=== PATIENT | male | born 1955 | race Caucasian/White ===

== ENCOUNTER 2017-11-19 10:47 | Inpatient (IN) | payer MEDICARE, SELFPAY ==
[~2017-11-19] VITALS: Ht 193 cm; Wt 122.7 kg
[~2017-11-19 10:47] MED LIST: ALBU90OI INH; ALBU90OI6; AMIO200 PO; AMLO10 PO; ASPI325; ATEN100; ATEN100 PO; ATOR10; Antivert25 MG PO; BUPR75; BUPR75 PO; CARB100CH PO; CARB200; CARB200 PO; CARV25 PO; CARV3.125 PO; CIPR500 PO; COUMADIN; CYCL10 PO; Cipro500 MG PO; Coreg25 MG PO; Desyrel50 MG PO; ESCI10 PO; ESCI20 PO; FINA5 PO; FLEC100 PO; FLEC50; FLEC50 PO; GABA100; GABA100 PO; HCTZ 25 MG; HYDACE5 PO; HYDCHL25 PO; HYDMOR2 PO; Keflex500 MG PO; LEVE500 PO; LISI5 PO; LOPE2C PO; LORA1 PO; LOSHYD; Lopressor 25 mg25 MG PO; MECL25 PO; METR500 PO; MULVITMIND PO; Mirapex0.25 MG PO; Norco 5-325 Ta1 EACH PO; ONDA4 PO; OXYACE5T PO; PHENA100 PO; PRED20 PO; PROCODE120 PO; PROM25 PO; Prednisone20 MG PO; RXHYDMOR2 PO; TAMS.4ER PO; TIOT18; TRAZ100 PO; TRAZ50 PO; TRIM100 PO; Tegretol200 MG; Tenormin PO; WARF1 PO; WARF5; WARF5 PO; WARF6 PO; WARF7.5; Zithromax250 MG PO; Zofran Odt4 MG SL; [UNRECOGNIZED DRUG - OTHER] PO
[2017-11-19 12:11] LABS: BASOPHILS ABSOLUTE AUTO 0.05 K/mm3 (0.00-0.23); BASOPHILS PERCENT AUTO 0 % (0-2); EOSINOPHILS ABSOLUTE AUTO 0.22 K/mm3 (0.00-0.68); EOSINOPHILS PERCENT AUTO 2 % (0-6); Hematocrit 35.9 % (37.0-53.0); Hemoglobin 12.1 g/dL (13.5-17.5); IMMATURE GRAN ABSOLUTE AUTO 0.24 K/mm3 (0.00-0.10); IMMATURE GRAN PERCENT AUTO 2 % (0-1); LYMPHOCYTES ABSOLUTE AUTO 1.07 K/mm3 (0.84-5.20); LYMPHOCYTES PERCENT AUTO 10 % (21-46); MONOCYTES ABSOLUTE AUTO 1.08 K/mm3 (0.16-1.47); MONOCYTES PERCENT AUTO 10 % (4-13); Mean Corpuscular HGB 30.4 pg (26.0-34.0); Mean Corpuscular HGB Conc 33.7 g/dL (31.5-36.5); Mean Corpuscular Volume 90 fL (80-100); Mean Platelet Volume 11.2 fL (9.1-12.4); NEUTROPHILS ABSOLUTE AUTO 8.48 K/mm3 (1.96-9.15); NEUTROPHILS PERCENT AUTO 76 % (41-73); Platelet Count 102 K/mm3 (150-400); RDW Coefficient Variation 12.3 % (11.7-14.2); RDW Standard Deviation 40.3 fL (35.1-46.3); Red Blood Cell Count 3.98 M/mm3 (4.30-5.90); White Blood Cell Count 11.14 K/mm3 (4.00-11.30)
[2017-11-19 12:32] LABS: Alanine Aminotransfer (ALT/SGP 18 U/L (12-78); Albumin, Blood 3.2 g/dL (3.4-5.0); Albumin/Globulin Ratio 0.8 (0.8-1.8); Alk Phos 84 U/L (50-136); Anion Gap 6 mmol/L (6-16); Aspartate Aminotrans (AST/SGOT 17 U/L (12-37); Bilirubin, Total 0.5 mg/dL (0.1-1.0); Blood Urea Nitrogen 16 mg/dL (8-24); Bun/Creatinine Ratio 10.1 (12.0-20.0); CO2, Blood 23 mmol/L (21-32); Calcium, Blood 8.3 mg/dL (8.5-10.1); Chloride, Blood 101 mmol/L (98-108); Creatinine, Blood 1.59 mg/dL (0.60-1.20); Glomerular Filtration Rate 47 (60-); Glucose, Blood 95 mg/dL (70-99); Potassium, Blood 5.7 mmol/L (3.5-5.5); Sodium, Blood 130 mmol/L (136-145); Total Protein, Blood 7.2 g/dL (6.4-8.2)
[2017-11-19 12:38] LABS: Troponin I <0.015 ng/mL (0.000-0.040)
[2017-11-19] MEDS ORDERED: ESCI20 PO (16:43)
[2017-11-19] MEDS ORDERED: LAMO100 PO (16:44)
[2017-11-19] MEDS ORDERED: VENLAFAXINE ER PO (17:18)
[2017-11-19 19:30] LABS: International Normalized Ratio 2.92; Prothrombin Time Results 31.4 Sec (9.7-11.5)
[2017-11-20 04:17] LABS: BASOPHILS ABSOLUTE AUTO 0.04 K/mm3 (0.00-0.23); BASOPHILS PERCENT AUTO 1 % (0-2); EOSINOPHILS ABSOLUTE AUTO 0.28 K/mm3 (0.00-0.68); EOSINOPHILS PERCENT AUTO 3 % (0-6); Hematocrit 35.4 % (37.0-53.0); Hemoglobin 11.8 g/dL (13.5-17.5); IMMATURE GRAN ABSOLUTE AUTO 0.17 K/mm3 (0.00-0.10); IMMATURE GRAN PERCENT AUTO 2 % (0-1); LYMPHOCYTES ABSOLUTE AUTO 1.31 K/mm3 (0.84-5.20); LYMPHOCYTES PERCENT AUTO 16 % (21-46); MONOCYTES PERCENT AUTO 10 % (4-13); Mean Corpuscular HGB 29.6 pg (26.0-34.0); Mean Corpuscular HGB Conc 33.3 g/dL (31.5-36.5); Mean Corpuscular Volume 89 fL (80-100); Mean Platelet Volume 10.5 fL (9.1-12.4); NEUTROPHILS ABSOLUTE AUTO 5.81 K/mm3 (1.96-9.15); NEUTROPHILS PERCENT AUTO 69 % (41-73); Platelet Count 109 K/mm3 (150-400); RDW Coefficient Variation 12.4 % (11.7-14.2); RDW Standard Deviation 40.4 fL (35.1-46.3); Red Blood Cell Count 3.99 M/mm3 (4.30-5.90); White Blood Cell Count 8.41 K/mm3 (4.00-11.30)
[2017-11-20 04:30] LABS: International Normalized Ratio 3.2
[2017-11-20 04:45] LABS: Prothrombin Time Results 34.5 Sec (9.7-11.5)
[2017-11-20 04:59] LABS: Albumin, Blood 3.1 g/dL (3.4-5.0); Albumin/Globulin Ratio 0.8 (0.8-1.8); Bilirubin, Total 0.5 mg/dL (0.1-1.0); Bun/Creatinine Ratio 12.8 (12.0-20.0); Calcium, Blood 8.3 mg/dL (8.5-10.1); Creatinine, Blood 1.49 mg/dL (0.60-1.20); Globulin, Blood 3.8 g/dL (2.2-4.0); Potassium, Blood 4.5 mmol/L (3.5-5.5); Total Protein, Blood 6.9 g/dL (6.4-8.2)
== END 2017-11-20 14:31 | disposition home or self-care (01) | DRG 91 ==
LOC: ER 10:47 → MEDS 10:48 → SURS 15:48
PROVIDERS: Emergency Medicine; Internal Medicine
DX: G83.84 Todd's paralysis (postepileptic) (principal); G93.41 Metabolic encephalopathy; E87.1 Hypo-osmolality and hyponatremia; C85.10 Unspecified B-cell lymphoma, unspecified site; G40.909 Epilepsy, unspecified, not intractable, without status epilepticus; I12.9 Hypertensive chronic kidney disease with stage 1 through stage 4 chronic kidney disease, or unspecified chronic kidney disease; Z86.718 Personal history of other venous thrombosis and embolism; I25.2 Old myocardial infarction; E87.5 Hyperkalemia; N18.3 Chronic kidney disease, stage 3 (moderate); Z95.810 Presence of automatic (implantable) cardiac defibrillator; T42.1X5A Adverse effect of iminostilbenes, initial encounter
CPT/HCPCS: 36415; 70450; 80053; 84484; 85025; 85610; 92523; 93005; 93010; 96360; 97161; 97166; 97530; 99285; G8978; G8979; G8980; G8987; G8988; G8989; G9162; G9163; G9164; J7030

== ENCOUNTER → 2018-06-20 | Outpatient (CLI) | payer MEDICARE ==
[~2018-06-20] MED LIST changes: +CARB100ER PO; +CEFD300 PO; +CEFP200 PO; +Coumadin5 MG PO; +LAMO100 PO; +Prinivil10 MG PO; +VENL75ER PO; +VENLAFAXINE ER PO
[2018-06-20 13:47] LABS: BASOPHILS ABSOLUTE AUTO 0.06 K/mm3 (0.00-0.23); BASOPHILS PERCENT AUTO 1 % (0-2); EOSINOPHILS ABSOLUTE AUTO 0.29 K/mm3 (0.00-0.68); EOSINOPHILS PERCENT AUTO 3 % (0-6); Hematocrit 36.8 % (37.0-53.0); Hemoglobin 12.5 g/dL (13.5-17.5); IMMATURE GRAN ABSOLUTE AUTO 0.26 K/mm3 (0.00-0.10); IMMATURE GRAN PERCENT AUTO 3 % (0-1); LYMPHOCYTES ABSOLUTE AUTO 1.15 K/mm3 (0.84-5.20); LYMPHOCYTES PERCENT AUTO 11 % (21-46); MONOCYTES PERCENT AUTO 8 % (4-13); Mean Corpuscular HGB 30.1 pg (26.0-34.0); Mean Corpuscular Volume 89 fL (80-100); Mean Platelet Volume 10.5 fL (9.1-12.4); NEUTROPHILS ABSOLUTE AUTO 7.79 K/mm3 (1.96-9.15); NEUTROPHILS PERCENT AUTO 75 % (41-73); Platelet Count 123 K/mm3 (150-400); RDW Coefficient Variation 12.4 % (11.7-14.2); RDW Standard Deviation 39.9 fL (35.1-46.3); Red Blood Cell Count 4.15 M/mm3 (4.30-5.90); White Blood Cell Count 10.35 K/mm3 (4.00-11.30)
[2018-06-20 13:57] LABS: Bun/Creatinine Ratio 6.6 (12.0-20.0); Calcium, Blood 8.6 mg/dL (8.5-10.1); Creatinine, Blood 1.97 mg/dL (0.60-1.20)
[2018-06-20 14:01] LABS: Potassium, Blood 6.4 mmol/L (3.5-5.5)
== END | disposition home or self-care (01) ==
LOC: LAB SHORT 13:38 → LAB EV 13:38
PROVIDERS: General Practice
DX: E87.5 Hyperkalemia (principal)
CPT/HCPCS: 80048; 85025; 85610

== ENCOUNTER 2018-07-30 11:58 | Emergency (ER) | payer MEDICARE ==
[~2018-07-30] VITALS: Ht 193 cm; Wt 81.7 kg
[2018-07-30 12:56] LABS: BASOPHILS ABSOLUTE AUTO 0.08 K/mm3 (0.00-0.23); BASOPHILS PERCENT AUTO 1 % (0-2); EOSINOPHILS ABSOLUTE AUTO 0.27 K/mm3 (0.00-0.68); EOSINOPHILS PERCENT AUTO 3 % (0-6); Hematocrit 39.8 % (37.0-53.0); Hemoglobin 13.2 g/dL (13.5-17.5); IMMATURE GRAN ABSOLUTE AUTO 0.28 K/mm3 (0.00-0.10); IMMATURE GRAN PERCENT AUTO 3 % (0-1); LYMPHOCYTES ABSOLUTE AUTO 1.37 K/mm3 (0.84-5.20); LYMPHOCYTES PERCENT AUTO 13 % (21-46); MONOCYTES ABSOLUTE AUTO 0.91 K/mm3 (0.16-1.47); MONOCYTES PERCENT AUTO 8 % (4-13); Mean Corpuscular HGB 29.7 pg (26.0-34.0); Mean Corpuscular HGB Conc 33.2 g/dL (31.5-36.5); Mean Corpuscular Volume 89 fL (80-100); Mean Platelet Volume 10.3 fL (9.1-12.4); NEUTROPHILS ABSOLUTE AUTO 7.98 K/mm3 (1.96-9.15); NEUTROPHILS PERCENT AUTO 73 % (41-73); Platelet Count 126 K/mm3 (150-400); RDW Coefficient Variation 12.4 % (11.7-14.2); RDW Standard Deviation 40.8 fL (35.1-46.3); Red Blood Cell Count 4.45 M/mm3 (4.30-5.90); White Blood Cell Count 10.89 K/mm3 (4.00-11.30)
[2018-07-30 13:09] LABS: International Normalized Ratio 2.31; Prothrombin Time Results 22.7 Sec (9.7-11.5)
[2018-07-30 13:16] LABS: Alanine Aminotransfer (ALT/SGP 20 U/L (12-78); Albumin, Blood 3.7 g/dL (3.4-5.0); Albumin/Globulin Ratio 0.8 (0.8-1.8); Alk Phos 104 U/L (50-136); Anion Gap 9 mmol/L (6-16); Aspartate Aminotrans (AST/SGOT 18 U/L (12-37); Bilirubin, Total 0.4 mg/dL (0.1-1.0); Blood Urea Nitrogen 16 mg/dL (8-24); Bun/Creatinine Ratio 10.5 (12.0-20.0); CO2, Blood 21 mmol/L (21-32); Calcium, Blood 8.7 mg/dL (8.5-10.1); Chloride, Blood 102 mmol/L (98-108); Creatinine, Blood 1.52 mg/dL (0.60-1.20); Globulin, Blood 4.4 g/dL (2.2-4.0); Glomerular Filtration Rate 49 (60-); Glucose, Blood 118 mg/dL (70-99); Potassium, Blood 4.7 mmol/L (3.5-5.5); Sodium, Blood 132 mmol/L (136-145); Total Protein, Blood 8.1 g/dL (6.4-8.2); Troponin I <0.015 ng/mL (0.000-0.040)
== END 2018-07-30 13:30 | disposition home or self-care (01) ==
LOC: ER 11:58
PROVIDERS: Physician Assistant
DX: I10 Essential (primary) hypertension (principal); Z88.0 Allergy status to penicillin; Z88.2 Allergy status to sulfonamides; Z88.1 Allergy status to other antibiotic agents; Z79.899 Other long term (current) drug therapy; Z79.01 Long term (current) use of anticoagulants; I48.91 Unspecified atrial fibrillation; G43.909 Migraine, unspecified, not intractable, without status migrainosus; I25.2 Old myocardial infarction; Z95.0 Presence of cardiac pacemaker
CPT/HCPCS: 36415; 70450; 80053; 84484; 85025; 85610; 93005; 93010; 99284-25

== ENCOUNTER 2018-10-02 00:39 | Emergency (ER) | payer MEDICARE ==
[~2018-10-02] VITALS: Ht 193 cm; Wt 136.1 kg
[2018-10-02] MEDS ORDERED: LISI5 PO (01:04)
== END 2018-10-02 01:30 | disposition home or self-care (01) ==
LOC: ER 00:39
DX: R29.818 Other symptoms and signs involving the nervous system (principal); I10 Essential (primary) hypertension; I25.2 Old myocardial infarction; I48.91 Unspecified atrial fibrillation; Z88.0 Allergy status to penicillin; Z88.2 Allergy status to sulfonamides; Z88.1 Allergy status to other antibiotic agents; Z79.899 Other long term (current) drug therapy; Z79.01 Long term (current) use of anticoagulants
CPT/HCPCS: 99284

== ENCOUNTER 2018-11-05 10:37 | Emergency (ER) | payer MEDICARE ==
[~2018-11-05] VITALS: Ht 193 cm; Wt 108.9 kg
[2018-11-05 11:19] LABS: BASOPHILS PERCENT AUTO 1 % (0-2); EOSINOPHILS ABSOLUTE AUTO 0.52 K/mm3 (0.00-0.68); EOSINOPHILS PERCENT AUTO 5 % (0-6); Hemoglobin 12.5 g/dL (13.5-17.5); IMMATURE GRAN ABSOLUTE AUTO 0.56 K/mm3 (0.00-0.10); IMMATURE GRAN PERCENT AUTO 5 % (0-1); LYMPHOCYTES ABSOLUTE AUTO 1.62 K/mm3 (0.84-5.20); LYMPHOCYTES PERCENT AUTO 14 % (21-46); MONOCYTES ABSOLUTE AUTO 0.93 K/mm3 (0.16-1.47); MONOCYTES PERCENT AUTO 8 % (4-13); Mean Corpuscular HGB 30.3 pg (26.0-34.0); Mean Corpuscular HGB Conc 32.9 g/dL (31.5-36.5); Mean Corpuscular Volume 92 fL (80-100); Mean Platelet Volume 9.8 fL (9.1-12.4); NEUTROPHILS ABSOLUTE AUTO 7.58 K/mm3 (1.96-9.15); NEUTROPHILS PERCENT AUTO 67 % (41-73); Platelet Count 104 K/mm3 (150-400); RDW Coefficient Variation 13.1 % (11.7-14.2); RDW Standard Deviation 43.6 fL (35.1-46.3); Red Blood Cell Count 4.12 M/mm3 (4.30-5.90); White Blood Cell Count 11.31 K/mm3 (4.00-11.30)
[2018-11-05] MEDS ORDERED: Venlafaxine HCl75 MG PO (11:56)
[2018-11-05] MEDS ORDERED: MIRT15 PO (11:56)
[2018-11-05] MEDS ORDERED: CARB200 PO (11:57)
[2018-11-05] MEDS ORDERED: AMLO5 PO (11:57)
[2018-11-05 12:05] LABS: Albumin, Blood 3.1 g/dL (3.4-5.0); Albumin/Globulin Ratio 0.8 (0.8-1.8); Bilirubin, Total 0.4 mg/dL (0.1-1.0); Bun/Creatinine Ratio 11.4 (12.0-20.0); Calcium, Blood 8.3 mg/dL (8.5-10.1); Creatinine, Blood 1.66 mg/dL (0.60-1.20); Globulin, Blood 3.8 g/dL (2.2-4.0); Potassium, Blood 5.3 mmol/L (3.5-5.5); Total Protein, Blood 6.9 g/dL (6.4-8.2)
[2018-11-05] MEDS ORDERED: Lamictal100 MG PO (13:35)
== END 2018-11-05 13:53 | disposition home or self-care (01) ==
LOC: ER 10:37
PROVIDERS: Emergency Medicine
DX: I12.9 Hypertensive chronic kidney disease with stage 1 through stage 4 chronic kidney disease, or unspecified chronic kidney disease (principal); N18.9 Chronic kidney disease, unspecified; I48.91 Unspecified atrial fibrillation; G40.909 Epilepsy, unspecified, not intractable, without status epilepticus; I25.2 Old myocardial infarction; Z85.72 Personal history of non-Hodgkin lymphomas; Z88.2 Allergy status to sulfonamides; Z88.0 Allergy status to penicillin; Z88.8 Allergy status to other drugs, medicaments and biological substances; Z79.01 Long term (current) use of anticoagulants; Z79.899 Other long term (current) drug therapy
CPT/HCPCS: 36415; 80053; 85025; 93005; 93010; 96360; 99285-25; J7030

== ENCOUNTER → 2018-11-12 | Outpatient (CLI) | payer MEDICARE ==
[~2018-11-12] MED LIST changes: +AMLO5 PO; +Lamictal100 MG PO; +MIRT15 PO; +Venlafaxine HCl75 MG PO
[2018-11-12 15:38] LABS: Hematocrit 36.6 % (37.0-53.0); Hemoglobin 11.7 g/dL (13.5-17.5); Mean Corpuscular HGB 30.2 pg (26.0-34.0); RDW Coefficient Variation 13.4 % (11.7-14.2); RDW Standard Deviation 46.5 fL (35.1-46.3); Red Blood Cell Count 3.87 M/mm3 (4.30-5.90); White Blood Cell Count 8.92 K/mm3 (4.00-11.30)
[2018-11-12 18:12] LABS: Mean Corpuscular Volume 95 fL (80-100); Mean Platelet Volume 10.6 fL (9.1-12.4); Platelet Count 138 K/mm3 (150-400)
[2018-11-12 18:21] LABS: BAND PERCENT MAN 6 % (0-8); BASOPHILS ABSOLUTE MAN 0.17 K/mm3 (0.00-0.23); BASOPHILS PERCENT MAN 2 % (0-2); EOSINOPHILS ABSOLUTE MAN 0.89 K/mm3 (0.00-0.68); EOSINOPHILS PERCENT MAN 10 % (0-6); LYMPHOCYTES ABSOLUTE MAN 1.78 K/mm3 (0.84-5.20); LYMPHOCYTES PERCENT MAN 20 % (21-46); METAMYELOCYTE ABSOLUTE MAN 0.08 K/mm3 (0.00-0.00); METAMYELOCYTE PERCENT MAN 1 % (0-0); MONOCYTES ABSOLUTE MAN 0.53 K/mm3 (0.16-1.47); MONOCYTES PERCENT MAN 6 % (4-13); MYELOCYTE ABSOLUTE MAN 0.08 K/mm3 (0.00-0.00); MYELOCYTE PERCENT MAN 1 % (0-0); NEUTROPHILS ABSOLUTE MAN 5.35 K/mm3 (1.96-9.15); SEG NEUTROPHILS PERCENT MAN 54 % (41-73); TOTAL CELLS COUNTED 100
[2018-11-12 19:06] LABS: International Normalized Ratio 1.9
== END | disposition home or self-care (01) ==
LOC: LAB SHORT 15:30 → LAB EV 15:30
PROVIDERS: Family Medicine; Internal Medicine
DX: I48.91 Unspecified atrial fibrillation (principal); R53.83 Other fatigue
CPT/HCPCS: 85025; 85610

== ENCOUNTER 2019-01-20 17:11 | Emergency (ER) | payer MEDICARE ==
[~2019-01-20] VITALS: Ht 193 cm; Wt 99.8 kg
[2019-01-20] MEDS ORDERED: Cleocin HCl300 MG PO (17:51)
[2019-02-04] MEDS ORDERED: LEVO750 PO (07:52)
== END 2019-01-20 18:00 | disposition home or self-care (01) ==
LOC: ER 17:11
DX: K04.7 Periapical abscess without sinus (principal); I10 Essential (primary) hypertension; I48.91 Unspecified atrial fibrillation; I25.2 Old myocardial infarction; G40.909 Epilepsy, unspecified, not intractable, without status epilepticus; Z88.0 Allergy status to penicillin; Z88.2 Allergy status to sulfonamides; Z79.899 Other long term (current) drug therapy
CPT/HCPCS: 99283

== ENCOUNTER 2019-02-03 00:06 | Emergency (ER) | payer MEDICARE ==
[~2019-02-03] VITALS: Ht 193 cm; Wt 122.5 kg
[~2019-02-03 00:06] MED LIST changes: +Cleocin HCl300 MG PO
[2019-02-03 00:39] LABS: BASOPHILS ABSOLUTE AUTO 0.06 K/mm3 (0.00-0.23); BASOPHILS PERCENT AUTO 1 % (0-2); EOSINOPHILS ABSOLUTE AUTO 0.21 K/mm3 (0.00-0.68); EOSINOPHILS PERCENT AUTO 2 % (0-6); Hematocrit 34.9 % (37.0-53.0); Hemoglobin 11.8 g/dL (13.5-17.5); IMMATURE GRAN ABSOLUTE AUTO 0.24 K/mm3 (0.00-0.10); IMMATURE GRAN PERCENT AUTO 2 % (0-1); LYMPHOCYTES PERCENT AUTO 8 % (21-46); MONOCYTES ABSOLUTE AUTO 0.81 K/mm3 (0.16-1.47); MONOCYTES PERCENT AUTO 7 % (4-13); Mean Corpuscular HGB 30.5 pg (26.0-34.0); Mean Corpuscular HGB Conc 33.8 g/dL (31.5-36.5); Mean Corpuscular Volume 90 fL (80-100); Mean Platelet Volume 10.4 fL (9.1-12.4); NEUTROPHILS ABSOLUTE AUTO 9.14 K/mm3 (1.96-9.15); NEUTROPHILS PERCENT AUTO 81 % (41-73); Platelet Count 120 K/mm3 (150-400); RDW Coefficient Variation 12.5 % (11.7-14.2); RDW Standard Deviation 41.6 fL (35.1-46.3); Red Blood Cell Count 3.87 M/mm3 (4.30-5.90); White Blood Cell Count 11.36 K/mm3 (4.00-11.30)
[2019-02-03 00:58] LABS: Alanine Aminotransfer (ALT/SGP 16 U/L (12-78); Albumin, Blood 3.2 g/dL (3.4-5.0); Albumin/Globulin Ratio 0.8 (0.8-1.8); Alk Phos 104 U/L (50-136); Anion Gap 8 mmol/L (6-16); Aspartate Aminotrans (AST/SGOT 12 U/L (12-37); Bilirubin, Total 0.4 mg/dL (0.1-1.0); Blood Urea Nitrogen 23 mg/dL (8-24); Bun/Creatinine Ratio 16.7 (12.0-20.0); CO2, Blood 24 mmol/L (21-32); Calcium, Blood 8.4 mg/dL (8.5-10.1); Chloride, Blood 100 mmol/L (98-108); Creatinine, Blood 1.38 mg/dL (0.60-1.20); Globulin, Blood 3.8 g/dL (2.2-4.0); Glomerular Filtration Rate 55 (60-); Glucose, Blood 104 mg/dL (70-99); Potassium, Blood 5.1 mmol/L (3.5-5.5); Sodium, Blood 132 mmol/L (136-145); Troponin I <0.015 ng/mL (0.000-0.040)
[2019-02-04] MEDS ORDERED: LEVO750 PO (07:52)
== END 2019-02-03 01:31 | disposition home or self-care (01) ==
LOC: ER 00:06
PROVIDERS: Physician Assistant
DX: E87.1 Hypo-osmolality and hyponatremia (principal); Z88.0 Allergy status to penicillin; Z88.2 Allergy status to sulfonamides; Z88.1 Allergy status to other antibiotic agents; Z79.899 Other long term (current) drug therapy; Z79.01 Long term (current) use of anticoagulants; I10 Essential (primary) hypertension; I48.91 Unspecified atrial fibrillation; I25.2 Old myocardial infarction
CPT/HCPCS: 71045; 80053; 83690; 84484; 85025; 93005; 93010; 96361; 96374; 99284-25; A9270-GY; J2405; J7030

== ENCOUNTER 2019-06-26 15:27 | Inpatient (IN) | payer MEDICARE ==
[~2019-06-26] VITALS: Ht 193 cm; Wt 120.8 kg
[~2019-06-26 15:27] MED LIST changes: +LEVO750 PO
[2019-06-26 16:11] LABS: BASOPHILS ABSOLUTE AUTO 0.04 K/mm3 (0.00-0.23); BASOPHILS PERCENT AUTO 0 % (0-2); EOSINOPHILS ABSOLUTE AUTO 0.32 K/mm3 (0.00-0.68); EOSINOPHILS PERCENT AUTO 2 % (0-6); Hematocrit 33.1 % (37.0-53.0); Hemoglobin 11.1 g/dL (13.5-17.5); IMMATURE GRAN ABSOLUTE AUTO 0.21 K/mm3 (0.00-0.10); IMMATURE GRAN PERCENT AUTO 1 % (0-1); LYMPHOCYTES PERCENT AUTO 4 % (21-46); MONOCYTES ABSOLUTE AUTO 1.15 K/mm3 (0.16-1.47); MONOCYTES PERCENT AUTO 6 % (4-13); Mean Corpuscular HGB Conc 33.5 g/dL (31.5-36.5); Mean Corpuscular Volume 93 fL (80-100); Mean Platelet Volume 10.7 fL (9.1-12.4); NEUTROPHILS ABSOLUTE AUTO 15.72 K/mm3 (1.96-9.15); NEUTROPHILS PERCENT AUTO 87 % (41-73); Platelet Count 116 K/mm3 (150-400); RDW Coefficient Variation 12.3 % (11.7-14.2); RDW Standard Deviation 41.8 fL (35.1-46.3); Red Blood Cell Count 3.58 M/mm3 (4.30-5.90); White Blood Cell Count 18.14 K/mm3 (4.00-11.30)
[2019-06-26] MEDS ORDERED: CARV25 PO ×2 (16:36→16:38)
[2019-06-26] MEDS ORDERED: CARB200 PO (16:37)
[2019-06-26] MEDS ORDERED: VENLAFAXINE HC225 MG PO (16:37)
[2019-06-26] MEDS ORDERED: VENL75ER PO (16:38)
[2019-06-26] MEDS ORDERED: LAMO100 PO (16:38)
[2019-06-26] MEDS ORDERED: WARF5 PO ×2 (16:39→18:34)
[2019-06-26] MEDS ORDERED: HYDCHL25 PO (16:39)
[2019-06-26 16:40] LABS: Alanine Aminotransfer (ALT/SGP 16 U/L (12-78); Albumin, Blood 3.3 g/dL (3.4-5.0); Albumin/Globulin Ratio 0.8 (0.8-1.8); Alk Phos 107 U/L (50-136); Anion Gap 9 mmol/L (6-16); Aspartate Aminotrans (AST/SGOT 13 U/L (12-37); Bilirubin, Total 1.1 mg/dL (0.1-1.0); Blood Urea Nitrogen 33 mg/dL (8-24); CO2, Blood 21 mmol/L (21-32); Calcium, Blood 8.4 mg/dL (8.5-10.1); Chloride, Blood 97 mmol/L (98-108); Globulin, Blood 4.3 g/dL (2.2-4.0); Glomerular Filtration Rate 32 (60-); Glucose, Blood 122 mg/dL (70-99); Potassium, Blood 5.1 mmol/L (3.5-5.5); Sodium, Blood 127 mmol/L (136-145); Total Protein, Blood 7.6 g/dL (6.4-8.2); Troponin I <0.015 ng/mL (0.000-0.040)
[2019-06-26] MEDS ORDERED: AMLO10 PO (16:40)
[2019-06-26 18:25] LABS: Influenza A Negative (NEGATIVE); Influenza B Negative (NEGATIVE)
[2019-06-26 20:38] LABS: International Normalized Ratio 2.39; Prothrombin Time Results 23.4 Sec (9.7-11.5)
--- NOTE | 2019-06-26 21:13 | NUR ---
PT ARRIVE TO MED FLOOR. DENIES PAIN AT THIS TIME. SITTING UP IN BED. ADMISSION IN PROGRESS.
--- NOTE | 2019-06-26 22:02 | NUR ---
CALLED DR JONES DE REQ TO SELF CATH. RECEIVED ORDER PER EMAR
[2019-06-27 00:42] LABS: Source, Urine Clean Catch
[2019-06-27 00:44] LABS: Bilirubin, Urine Neg (Neg); Blood, Urine 5+ (Neg); Glucose Qualitative, Urine Neg (Neg); Ketones, Urine 1+ (Neg); Leukocyte Esterase, Urine 2+ (Neg); Nitrite, Urine Neg (Neg); Protein, Urine 3+ (Neg); Specific Gravity, Urine 1.015 (1.003-1.022); Urobilinogen, Urine 2+ (Normal)
[2019-06-27 00:50] LABS: Appearance, Urine Clear (Clear); Color, Urine Amber (P-Yellow)
[2019-06-27 00:51] LABS: Amorphous Light (0-Heavy); Bacteria Mod /hpf; Squamous Epithelial Cells Few /hpf (Few)
[2019-06-27 04:50] LABS: Hematocrit 31.2 % (37.0-53.0); Hemoglobin 10.2 g/dL (13.5-17.5); Mean Corpuscular HGB 30.5 pg (26.0-34.0); Mean Corpuscular HGB Conc 32.7 g/dL (31.5-36.5); Mean Corpuscular Volume 93 fL (80-100); Mean Platelet Volume 10.8 fL (9.1-12.4); Platelet Count 123 K/mm3 (150-400); RDW Coefficient Variation 12.5 % (11.7-14.2); Red Blood Cell Count 3.34 M/mm3 (4.30-5.90); White Blood Cell Count 18.13 K/mm3 (4.00-11.30)
--- NOTE | 2019-06-27 04:56 | NUR ---
SHIFT SUMARY: PATIENT RESTED IN CAT NAPS BETWEEN INTERVENTION BUT REMAINS OF PLEASANT DEMEANOR AND COOPERATIVE WITH CARE. WHILE THE PATIENT IS AO4 HE ALSO HAS SOME CONFUSION AT TIMES. HIS ADMISSION ASSESSMENTS WERE COMPLETED AND MEDS GIVEN PER EMAR. HIS MED REC NEEDS TO BE REVIEWED BY THE PROVIDER HILDA, HIS PCP MADE RECENT ADJUSTMENTS TO THE DOSING OF SEVERAL OF HIS MEDS. PT DENIES PAIN THIS SHIFT. PT USING SELF CATHS, BUT MAY NEED MORE ASSISTANCE THAN HE WOULD LIKE TO SAY WITH THAT TASK. RESP PANEL COMPLETED AND U/A SENT.
[2019-06-27 05:04] LABS: International Normalized Ratio 2.82; Prothrombin Time Results 27.2 Sec (9.7-11.5)
[2019-06-27 05:47] LABS: Adenovirus Not Detected (NOT DETECT); Bordetella pertussis Not Detected (NOT DETECT); Chlamydophila pneumoniae Not Detected (NOT DETECT); Coronavirus 229E Not Detected (NOT DETECT); Coronavirus HKU1 Not Detected (NOT DETECT); Coronavirus NL63 Not Detected (NOT DETECT); Coronavirus OC43 Not Detected (NOT DETECT); Human Metapneumovirus Not Detected (NOT DETECT); Human Rhinovirus/Enterovirus Not Detected (NOT DETECT); Influenza A Not Detected (NOT DETECT); Influenza A/2009-H1 Not Detected (NOT DETECT); Influenza A/H1 Not Detected (NOT DETECT); Influenza A/H3 Not Detected (NOT DETECT); Influenza B Not Detected (NOT DETECT); Mycoplasma pneumoniae Not Detected (NOT DETECT); Parainfluenza Virus 1 Not Detected (NOT DETECT); Parainfluenza Virus 2 Not Detected (NOT DETECT); Parainfluenza Virus 3 Not Detected (NOT DETECT); Parainfluenza Virus 4 Not Detected (NOT DETECT); Respiratory Syncytial Virus Not Detected (NOT DETECT)
[2019-06-27 05:54] LABS: Bun/Creatinine Ratio 16.7 (12.0-20.0); Calcium, Blood 8.1 mg/dL (8.5-10.1); Creatinine, Blood 2.15 mg/dL (0.60-1.20); Potassium, Blood 4.8 mmol/L (3.5-5.5)
--- NOTE | 2019-06-27 15:24 | NUR ---
ECHOCARDIOGRAM COMPLETE
--- NOTE | 2019-06-27 17:24 | NUR ---
SUMMARY PT WAS AWAKE THIS AM, ORIENT X2 HOWEVER SOMEWHAT FORGETFUL, RAMBLING SPEECH. HE STATE "CHEMO BRAIN" REASON FOR DECREASED MENTATION, STATE HX CANCER TX. HE APPEARS WEAK/FATIGUED, @ X'S CLOSES EYES WHILE TALKING, DROWSY. STATE NO PAIN, CONTINUING COUGH. SPUTUM SAMPLE SENT THIS AM. AFTER AM MEDS THIS AM PT BECAME VERY DROWSY, APPEARED SEDATED. BENITO RE-EXAMINATION OF MEDS HIS STATE TEGRETOL HAS BEEN DECREASED, DR MONTIEL NOTIFIED. ALL HOME MED DISCREPANCIES CORRECTED. THIS AFTERNOON PT'S DAUGHTER STATE SHE WITNESSED POSSIBLE SEIZURE ACTIVITY, CAUSING SKIN TEAR PT'S L HAND, SEIZURE PADS PLACED. PT HAS HX NEUROGENIC BLADDER, SELF CATHS @ HOME, BRING IN HOME CATHETERS. DX BILAT PNEUM, LUNGS MILDLY COARSE THIS AM, BIOX 9% RA. IV ANTIBX ARE ORDERED, NS INFUSING @ 150 ML/HR.
--- NOTE | 2019-06-28 04:47 | NUR ---
SHIFT SUMMARY NO CHANGES OVERNIGHT, PT HAS RESTED T/O THE NOC. VERY DROWSY, BUT AWAKES TO VERBAL STIMULI. PT IS FORGETFUL AND SPEECH IS NON SENSICAL AT TIMES. PT DOES HAVE DIFFICULTIES EXPRESSING HIS THOUGHTS, HE REPORTS "CHEMO' BRAIN. IV ABX INFUSED ORDERED. TELE IN PLACE WITH NSR/1ST DEGREE HB 69. LUNGS DIMINISHED. RA, RESP E/U. VITALS STABLE. ASSESSMENT UNCHANGED. WILL CONTINUE TO MONITOR AND REPORT TO ONCOMING RN.
[2019-06-28 04:55] LABS: BASOPHILS ABSOLUTE AUTO 0.07 K/mm3 (0.00-0.23); BASOPHILS PERCENT AUTO 1 % (0-2); EOSINOPHILS ABSOLUTE AUTO 0.23 K/mm3 (0.00-0.68); EOSINOPHILS PERCENT AUTO 2 % (0-6); Hematocrit 28.7 % (37.0-53.0); Hemoglobin 9.1 g/dL (13.5-17.5); IMMATURE GRAN ABSOLUTE AUTO 0.27 K/mm3 (0.00-0.10); IMMATURE GRAN PERCENT AUTO 3 % (0-1); LYMPHOCYTES ABSOLUTE AUTO 1.13 K/mm3 (0.84-5.20); LYMPHOCYTES PERCENT AUTO 10 % (21-46); MONOCYTES ABSOLUTE AUTO 1.32 K/mm3 (0.16-1.47); MONOCYTES PERCENT AUTO 12 % (4-13); Mean Corpuscular HGB 30.6 pg (26.0-34.0); Mean Corpuscular HGB Conc 31.7 g/dL (31.5-36.5); Mean Platelet Volume 11.4 fL (9.1-12.4); NEUTROPHILS ABSOLUTE AUTO 7.82 K/mm3 (1.96-9.15); NEUTROPHILS PERCENT AUTO 72 % (41-73); Platelet Count 126 K/mm3 (150-400); RDW Coefficient Variation 12.9 % (11.7-14.2); RDW Standard Deviation 45.8 fL (35.1-46.3); Red Blood Cell Count 2.97 M/mm3 (4.30-5.90); White Blood Cell Count 10.84 K/mm3 (4.00-11.30)
[2019-06-28 04:56] LABS: Mean Corpuscular Volume 97 fL (80-100)
[2019-06-28 05:12] LABS: International Normalized Ratio 3.57; Prothrombin Time Results 33.7 Sec (9.7-11.5)
[2019-06-28 05:17] LABS: Albumin, Blood 2.8 g/dL (3.4-5.0); Anion Gap 10 mmol/L (6-16); Blood Urea Nitrogen 49 mg/dL (8-24); Bun/Creatinine Ratio 19.8 (12.0-20.0); CO2, Blood 20 mmol/L (21-32); Calcium, Blood 7.9 mg/dL (8.5-10.1); Chloride, Blood 105 mmol/L (98-108); Creatinine, Blood 2.48 mg/dL (0.60-1.20); Glomerular Filtration Rate 28 (60-); Glucose, Blood 78 mg/dL (70-99); Phosphorus, Blood 4.3 mg/dL (2.5-4.9); Potassium, Blood 4.9 mmol/L (3.5-5.5); Sodium, Blood 135 mmol/L (136-145)
--- NOTE | 2019-06-28 12:21 | NUR ---
SEIZURE- DURABLE MEDICAL EQUIPMENT TECHNICIAN CALLED AND REPORTED SHE WAS AT BEDSIDE AND PT HAVING A SEIZURE. PHYSICAL THERAPY HAD ATTEMTPED TO SEE PT AND REPORTS PT BEGAN COUGHING AND THEN BEGAN TO HAVE A SEIZURE. UPON MY ARRIVAL PT CONTINUE TO HAVE JERKING MOVEMENTS TO BUE AND BLE AND NOT RESPONDING THEN BEGAN CRYING. DR NICOLAS WAS NOTIFIED AND PER HIS REQUEST ATIVAN 2MG IV GIVEN. PT QUICKLY BEGAN TO RELAX AND IS NOW SLEEPING. VSS AT THIS TIME. SEIZURE PADS WERE IN PLACE. WILL CONT TO MONITOR.
--- NOTE | 2019-06-28 16:31 | NUR ---
SHIFT SUMMARY- PT A/OX4, SLOW TO RESPOND AT TIMES. LS DIMINISHED, ON RA. TELE NSR AT 79. PT DENIES ANY COMPLAINTS T/O THE DAY. THERAPY ATTEMPTED TO SEE PT WHEN HE HAD A SEIZURE, ATIVAN 2MG IV GIVEN AND PT HAS BEEN RESTING SINCE. NO FURTHER SEIZURES NOTED. PT STRAIGHT CATH'D X1 WITH 500ML OUTPUT, PT NEEDING ASSISTANCE WITH STRAIGHT CATH. IVF DECREASED TO 75ML/HR.
--- NOTE | 2019-06-29 04:00 | NUR ---
SHIFT SUMMARY NO ACUTE CHANGES TO REPORT THIS SHIFT. PT DROWSY, AND SLEEPS MOST OF THE TIME, BUT AWAKES EASILY TO VERBAL STIMULI. NO SEIZURE ACTIVITY THIS SHIFT. PT HAS NEEDED SOME ASSISTANCE WITH STRAIGHT CATH, BUT WAS MOSTLY ABLE TO DO IT HIMSELF. 700 MLS REMOVED VIA STRAIGHT CATH THIS SHIFT. PT DENIES PAIN. OCCASIONAL, HARSH PRODUCTIVE COUGH. IV ABX INFUSED ORDERED. IVF INFUSING AT THIS TIME. BED IN LOWEST POSITION, CALL LIGHT WITHIN REACH. WILL CONTINUE TO MONITOR AND REPORT TO ONCOMING RN.
[2019-06-29 05:27] LABS: BASOPHILS ABSOLUTE AUTO 0.07 K/mm3 (0.00-0.23); BASOPHILS PERCENT AUTO 1 % (0-2); EOSINOPHILS ABSOLUTE AUTO 0.47 K/mm3 (0.00-0.68); EOSINOPHILS PERCENT AUTO 4 % (0-6); Hematocrit 30.2 % (37.0-53.0); Hemoglobin 9.7 g/dL (13.5-17.5); IMMATURE GRAN ABSOLUTE AUTO 0.41 K/mm3 (0.00-0.10); IMMATURE GRAN PERCENT AUTO 4 % (0-1); LYMPHOCYTES ABSOLUTE AUTO 1.07 K/mm3 (0.84-5.20); LYMPHOCYTES PERCENT AUTO 10 % (21-46); MONOCYTES ABSOLUTE AUTO 1.36 K/mm3 (0.16-1.47); MONOCYTES PERCENT AUTO 12 % (4-13); Mean Corpuscular HGB 30.2 pg (26.0-34.0); Mean Corpuscular HGB Conc 32.1 g/dL (31.5-36.5); Mean Platelet Volume 10.6 fL (9.1-12.4); NEUTROPHILS ABSOLUTE AUTO 7.77 K/mm3 (1.96-9.15); NEUTROPHILS PERCENT AUTO 70 % (41-73); Platelet Count 166 K/mm3 (150-400); RDW Coefficient Variation 12.7 % (11.7-14.2); RDW Standard Deviation 44.5 fL (35.1-46.3); Red Blood Cell Count 3.21 M/mm3 (4.30-5.90); White Blood Cell Count 11.15 K/mm3 (4.00-11.30)
[2019-06-29 05:34] LABS: Mean Corpuscular Volume 94 fL (80-100)
[2019-06-29 05:45] LABS: Anion Gap 12 mmol/L (6-16); Blood Urea Nitrogen 48 mg/dL (8-24); Bun/Creatinine Ratio 21.9 (12.0-20.0); CO2, Blood 17 mmol/L (21-32); Calcium, Blood 8.1 mg/dL (8.5-10.1); Chloride, Blood 107 mmol/L (98-108); Creatinine, Blood 2.19 mg/dL (0.60-1.20); Glomerular Filtration Rate 32 (60-); Glucose, Blood 80 mg/dL (70-99); Phosphorus, Blood 3.9 mg/dL (2.5-4.9); Potassium, Blood 4.4 mmol/L (3.5-5.5); Sodium, Blood 136 mmol/L (136-145)
[2019-06-29 05:48] LABS: Prothrombin Time Results 51.4 Sec (9.7-11.5)
[2019-06-29 06:08] LABS: International Normalized Ratio 5.68
--- NOTE | 2019-06-29 11:51 | NUR ---
OBSERVED PATIENT COMPLETE SELF CATHETERIZATION. PATIENT DIDN'T WASH HANDS PRIOR TO ACTIVITY. STERILE TECHNIQUE NOT USED BY PATIENT. ATTEMPTED EDUCATION. PATIENT MENTATION SEEMS LIMITED AND TEACH BACK NOT PERFORMED D/T MENTATION. PATIENT WASN'T RECEPTIVE TO NURSE PERFORMING STRAIGHT CATH.
[2019-06-30 04:59] LABS: BASOPHILS ABSOLUTE AUTO 0.06 K/mm3 (0.00-0.23); BASOPHILS PERCENT AUTO 1 % (0-2); EOSINOPHILS ABSOLUTE AUTO 0.45 K/mm3 (0.00-0.68); EOSINOPHILS PERCENT AUTO 5 % (0-6); Hematocrit 28.5 % (37.0-53.0); Hemoglobin 9.1 g/dL (13.5-17.5); IMMATURE GRAN ABSOLUTE AUTO 0.36 K/mm3 (0.00-0.10); IMMATURE GRAN PERCENT AUTO 4 % (0-1); LYMPHOCYTES ABSOLUTE AUTO 0.96 K/mm3 (0.84-5.20); LYMPHOCYTES PERCENT AUTO 11 % (21-46); MONOCYTES PERCENT AUTO 13 % (4-13); Mean Corpuscular HGB 29.6 pg (26.0-34.0); Mean Corpuscular HGB Conc 31.9 g/dL (31.5-36.5); Mean Corpuscular Volume 93 fL (80-100); Mean Platelet Volume 10.2 fL (9.1-12.4); NEUTROPHILS ABSOLUTE AUTO 5.73 K/mm3 (1.96-9.15); NEUTROPHILS PERCENT AUTO 66 % (41-73); Platelet Count 166 K/mm3 (150-400); RDW Coefficient Variation 12.7 % (11.7-14.2); RDW Standard Deviation 43.1 fL (35.1-46.3); Red Blood Cell Count 3.07 M/mm3 (4.30-5.90); White Blood Cell Count 8.66 K/mm3 (4.00-11.30)
[2019-06-30 05:12] LABS: International Normalized Ratio 2.82; Prothrombin Time Results 27.2 Sec (9.7-11.5)
[2019-06-30 05:19] LABS: Albumin, Blood 2.8 g/dL (3.4-5.0); Anion Gap 11 mmol/L (6-16); Blood Urea Nitrogen 42 mg/dL (8-24); Bun/Creatinine Ratio 22.2 (12.0-20.0); CO2, Blood 19 mmol/L (21-32); Calcium, Blood 8.1 mg/dL (8.5-10.1); Carbamazepine 11.3 ug/mL (4.0-12.0); Chloride, Blood 107 mmol/L (98-108); Creatinine, Blood 1.89 mg/dL (0.60-1.20); Glomerular Filtration Rate 38 (60-); Glucose, Blood 79 mg/dL (70-99); Phosphorus, Blood 3.3 mg/dL (2.5-4.9); Potassium, Blood 4.1 mmol/L (3.5-5.5); Sodium, Blood 137 mmol/L (136-145)
--- NOTE | 2019-06-30 07:25 | NUR ---
06/30/19 0630 RETURNED FROM X-EAY AND RECONNECTED TO IV FLUIDS. PT ST CATHED TWICE THIS SHIFT. PT LETHARGIC AND FORGETFUL TO CURRENT INSTRUCTIONS. NEEDS FREQUENT REMINDERS TO INDO, GIVEN. VERY WEAK ON LEGS.
[2019-06-30] MEDS ORDERED: ACET325 PO (14:19)
[2019-06-30] MEDS ORDERED: ALBU90OI INH (14:20)
[2019-06-30] MEDS ORDERED: AZIT500 PO (14:21)
[2019-06-30] MEDS ORDERED: CEFU250T47 PO (14:21)
[2019-06-30] MEDS ORDERED: FAMO40 PO (14:22)
[2019-06-30] MEDS ORDERED: GUAI600T33 PO (14:23)
--- NOTE | 2019-06-30 16:15 | NUR ---
DISCHARGE DISCHARGE INSTRUCTIONS, MEDICATION LIST AND FOLLOW UP APPOINTMENTS REVIEWED WITH PT AND SPOUSE. QUESTIONS/CONCERNS ANSWERED. BOTH VERBALLY INDICATED UNDERSTANDING OF ALL INSTRUCTIONS RECEIVED AND THIS RN WILL BE AVAILABLE TO ANSWER FURTHER QUESTIONS IF ANY ARISE. ESCORTED OUT VIA W/C BY GIO
== END 2019-06-30 16:14 | disposition home health service (06) | DRG 193 ==
LOC: ER 15:27 → MEDS 18:32
PROVIDERS: Emergency Medicine; Family Medicine; Internal Medicine; Physician Assistant; ADMIT Family Medicine
DX: J18.9 Pneumonia, unspecified organism (principal); G93.41 Metabolic encephalopathy; E87.1 Hypo-osmolality and hyponatremia; N17.9 Acute kidney failure, unspecified; E87.2 Acidosis; I10 Essential (primary) hypertension; I25.2 Old myocardial infarction; G40.909 Epilepsy, unspecified, not intractable, without status epilepticus; Z95.0 Presence of cardiac pacemaker; Z79.01 Long term (current) use of anticoagulants; N31.9 Neuromuscular dysfunction of bladder, unspecified
CPT/HCPCS: 0099U; 36415; 70450; 71045; 71046; 80048; 80053; 80069; 80156; 81001; 83605; 83735; 83880; 84145; 84443; 84484; 85025; 85027; 85610; 86713; 87040; 87070; 87077; 87086; 87186; 87205; 87804; 93005; 93010; 93306; 94640; 94760; 96361; 96365; 96375; 97110; 97161; 97165; 97530; 97535; 99285-25; J0456; J0696; J2060; J2405; J7030; J7050

== ENCOUNTER 2019-09-24 08:54 | Inpatient (IN) | payer MEDICARE ==
[~2019-09-24] VITALS: Ht 193 cm; Wt 108.7 kg
[~2019-09-24 08:54] MED LIST changes: +ACET325 PO; +AZIT500 PO; +CEFU250T47 PO; +FAMO40 PO; +GUAI600T33 PO; +VENLAFAXINE HC150 M1 PO
[2019-09-24 10:10] LABS: BASOPHILS ABSOLUTE AUTO 0.07 K/mm3 (0.00-0.23); BASOPHILS PERCENT AUTO 1 % (0-2); EOSINOPHILS ABSOLUTE AUTO 0.15 K/mm3 (0.00-0.68); EOSINOPHILS PERCENT AUTO 2 % (0-6); Hematocrit 37.8 % (37.0-53.0); Hemoglobin 11.9 g/dL (13.5-17.5); IMMATURE GRAN ABSOLUTE AUTO 0.19 K/mm3 (0.00-0.10); IMMATURE GRAN PERCENT AUTO 2 % (0-1); LYMPHOCYTES ABSOLUTE AUTO 1.04 K/mm3 (0.84-5.20); LYMPHOCYTES PERCENT AUTO 10 % (21-46); MONOCYTES ABSOLUTE AUTO 0.99 K/mm3 (0.16-1.47); MONOCYTES PERCENT AUTO 10 % (4-13); Mean Corpuscular HGB 29.7 pg (26.0-34.0); Mean Corpuscular HGB Conc 31.5 g/dL (31.5-36.5); Mean Corpuscular Volume 94 fL (80-100); NEUTROPHILS ABSOLUTE AUTO 7.89 K/mm3 (1.96-9.15); NEUTROPHILS PERCENT AUTO 76 % (41-73); Platelet Count 128 K/mm3 (150-400); RDW Coefficient Variation 12.9 % (11.7-14.2); RDW Standard Deviation 44.6 fL (35.1-46.3); Red Blood Cell Count 4.01 M/mm3 (4.30-5.90); White Blood Cell Count 10.33 K/mm3 (4.00-11.30)
[2019-09-24 10:29] LABS: Albumin, Blood 2.8 g/dL (3.4-5.0); Albumin/Globulin Ratio 0.6 (0.8-1.8); Bilirubin, Total 0.7 mg/dL (0.1-1.0); Bun/Creatinine Ratio 16.7 (12.0-20.0); Calcium, Blood 8.1 mg/dL (8.5-10.1); Creatinine, Blood 1.74 mg/dL (0.60-1.20); Globulin, Blood 4.9 g/dL (2.2-4.0); Potassium, Blood 5.8 mmol/L (3.5-5.5); Total Protein, Blood 7.7 g/dL (6.4-8.2)
[2019-09-24 10:33] LABS: Influenza A Negative (NEGATIVE); Influenza B Negative (NEGATIVE)
[2019-09-24] MEDS ORDERED: OMEP20ER PO (11:49)
[2019-09-24 12:46] LABS: Source, Urine Clean Catch
[2019-09-24 12:58] LABS: Bilirubin, Urine Neg (Neg); Blood, Urine 5+ (Neg); Glucose Qualitative, Urine Neg (Neg); Ketones, Urine 2+ (Neg); Leukocyte Esterase, Urine 2+ (Neg); Nitrite, Urine Pos (Neg); Protein, Urine 4+ (Neg); Urobilinogen, Urine 2+ (Normal)
[2019-09-24 13:14] LABS: Appearance, Urine Turbid (Clear); Color, Urine Yellow (P-Yellow)
[2019-09-24 13:15] LABS: Red Blood Cells, Urine 25-50 /hpf (0-2); White Blood Cells, Urine TNTC /hpf (0-5)
[2019-09-24 13:16] LABS: Bacteria Many /hpf; Squamous Epithelial Cells Few /hpf (Few)
[2019-09-24 13:17] LABS: Hyaline Casts 0-2 /lpf (0-2)
[2019-09-24] MEDS ORDERED: WARF5 PO (14:56)
[2019-09-24] MEDS ORDERED: ALLEGRA ALLERG180 MG PO (16:26)
--- NOTE | 2019-09-24 18:46 | NUR ---
PT ARRIVED TO THE UNIT AT 1624, ORIENTED TO THE ROOM. PT LUNG SOUNDS ARE COURSE, AND PT HAS DRY HARSH COUGH. PROVIDE ORANGE JUICE. NO OTHER NEED AT THIS TIME. PT DENIES PAIN
--- NOTE | 2019-09-24 19:15 | NUR ---
1915: ASSUMED CARE OF PATIENT. PT HAS COARSE LUNG SOUNDS WITH CRACKLES T/O. HE IS AOX4, CALLS APPROPRIATELY AND IS ABLE TO MAKE HIS NEEDS KNOWN. BED IS LOW AND LOCKED. CALL CHRISTINE WITHIN REACH.
[2019-09-24 19:39] LABS: International Normalized Ratio 2.46
--- NOTE | 2019-09-24 22:35 | NUR ---
SPOKE TO DR OZUNA REAGARDING REQUEST FOR COUGH SYRUP AND TESSALON PERRLE FOR PERIODS OF REST FOR PNA PT. WILL CONTINUE TO MONITOR AND RECEIVED ORDER PER EMAR.
[2019-09-25 04:59] LABS: BASOPHILS ABSOLUTE AUTO 0.05 K/mm3 (0.00-0.23); BASOPHILS PERCENT AUTO 1 % (0-2); EOSINOPHILS ABSOLUTE AUTO 0.19 K/mm3 (0.00-0.68); EOSINOPHILS PERCENT AUTO 2 % (0-6); Hemoglobin 10.6 g/dL (13.5-17.5); IMMATURE GRAN ABSOLUTE AUTO 0.17 K/mm3 (0.00-0.10); IMMATURE GRAN PERCENT AUTO 2 % (0-1); LYMPHOCYTES PERCENT AUTO 15 % (21-46); MONOCYTES ABSOLUTE AUTO 1.18 K/mm3 (0.16-1.47); MONOCYTES PERCENT AUTO 12 % (4-13); Mean Corpuscular HGB 29.9 pg (26.0-34.0); Mean Corpuscular HGB Conc 33.1 g/dL (31.5-36.5); Mean Platelet Volume 10.3 fL (9.1-12.4); NEUTROPHILS ABSOLUTE AUTO 6.99 K/mm3 (1.96-9.15); NEUTROPHILS PERCENT AUTO 69 % (41-73); Platelet Count 110 K/mm3 (150-400); RDW Standard Deviation 43.4 fL (35.1-46.3); Red Blood Cell Count 3.54 M/mm3 (4.30-5.90); White Blood Cell Count 10.08 K/mm3 (4.00-11.30)
[2019-09-25 05:00] LABS: Mean Corpuscular Volume 90 fL (80-100)
--- NOTE | 2019-09-25 05:09 | NUR ---
END OF SHIFT: PATIENT HAS COARSE CRACKLES AND WHEEZES THRU OUT HIS LUNG CAMPBELL. HE C/O SORE THROAT AND RECEVD LOZENGES PER EMAR. HE C/O OF PAIN FROM COUGHING AND DR OZUNA ORDERED, HE RECVD TESSALON AND COUGH SYRUP PER EMAR. BREATHING TREATMENTS WERE OFFERED AND AVAILABLE. THIS MORNING HE FEELS MUCH BETTER. WE TALKED ABOUT THE IMPORTANCE OF PERIODS OF REST AND PERIODS OF "COUGHING IT OUT" PART OF RECOVERY PROCESSES. WILL CONTINUE TO MONITOR TIL SHIFT REPORT;
[2019-09-25 05:14] LABS: International Normalized Ratio 2.44; Prothrombin Time Results 24.8 Sec (9.7-11.5)
[2019-09-25 05:34] LABS: Albumin, Blood 2.7 g/dL (3.4-5.0); Albumin/Globulin Ratio 0.6 (0.8-1.8); Bilirubin, Total 0.5 mg/dL (0.1-1.0); Bun/Creatinine Ratio 20.2 (12.0-20.0); Calcium, Blood 7.9 mg/dL (8.5-10.1); Creatinine, Blood 1.93 mg/dL (0.60-1.20); Globulin, Blood 4.4 g/dL (2.2-4.0); Magnesium, Blood 1.6 mg/dL (1.6-2.4); Total Protein, Blood 7.1 g/dL (6.4-8.2); Troponin I 0.022 ng/mL (0.000-0.040)
--- NOTE | 2019-09-25 17:06 | NUR ---
SHIFT SUMMARY- PT IS A/O PLESANT AND COOPERATIVE. PT SLEPT FOR MUCH OF THIS SHIFT. PT AMBULATED TO THE RESTROOM. LUNG SOUNDS ARE COURSE WITH WHEEZES. WORKING WITHT RESPRATORY THERAPY.
--- NOTE | 2019-09-26 00:07 | NUR ---
PHYSICIAN COMMUNICATION CONTACTED DR BARROS TO LET HIM KNOW THAT THE PATIENT HAD REQUESTED TYLENOL FOR A HEADACHE BUT HE DID NOT HAVE AN ORDER FOR IT. DR BARROS ORDERED 650 MG TYLENOL Q6 HRS NEEDED.
[2019-09-26 05:49] LABS: BASOPHILS ABSOLUTE AUTO 0.04 K/mm3 (0.00-0.23); BASOPHILS PERCENT AUTO 1 % (0-2); EOSINOPHILS ABSOLUTE AUTO 0.35 K/mm3 (0.00-0.68); EOSINOPHILS PERCENT AUTO 5 % (0-6); Hematocrit 31.8 % (37.0-53.0); Hemoglobin 10.6 g/dL (13.5-17.5); IMMATURE GRAN ABSOLUTE AUTO 0.14 K/mm3 (0.00-0.10); IMMATURE GRAN PERCENT AUTO 2 % (0-1); LYMPHOCYTES ABSOLUTE AUTO 1.48 K/mm3 (0.84-5.20); LYMPHOCYTES PERCENT AUTO 20 % (21-46); MONOCYTES ABSOLUTE AUTO 0.86 K/mm3 (0.16-1.47); MONOCYTES PERCENT AUTO 12 % (4-13); Mean Corpuscular HGB 30.3 pg (26.0-34.0); Mean Corpuscular HGB Conc 33.3 g/dL (31.5-36.5); Mean Corpuscular Volume 91 fL (80-100); Mean Platelet Volume 10.8 fL (9.1-12.4); NEUTROPHILS ABSOLUTE AUTO 4.43 K/mm3 (1.96-9.15); NEUTROPHILS PERCENT AUTO 61 % (41-73); Platelet Count 126 K/mm3 (150-400); RDW Standard Deviation 42.8 fL (35.1-46.3)
[2019-09-26 05:58] LABS: International Normalized Ratio 2.19; Prothrombin Time Results 22.4 Sec (9.7-11.5)
[2019-09-26 06:02] LABS: Bun/Creatinine Ratio 25.9 (12.0-20.0); Calcium, Blood 7.9 mg/dL (8.5-10.1); Creatinine, Blood 1.66 mg/dL (0.60-1.20); Potassium, Blood 4.5 mmol/L (3.5-5.5)
--- NOTE | 2019-09-26 07:39 | NUR ---
SHIFT SUMMARY PATIENT ALERT AND ORIENTED. WAS ABLE TO SLEEP WELL MOST OF THE NIGHT. IV PATENT AND FLUSHED. BED IN LOWEST POSITION WITH WHEELS LOCKED. CALL LIGHT WITHIN REACH. REPORT GIVEN TO ONCOMING RN.
[2019-09-26] MEDS ORDERED: AZIT500 PO (14:50)
[2019-09-26] MEDS ORDERED: NITR100CA PO (14:54)
[2019-09-26] MEDS ORDERED: Lamictal150 MG PO (14:54)
--- NOTE | 2019-09-26 15:30 | NUR ---
PT. DISCHARGED HOME WITH SPOUSE.
== END 2019-09-26 15:29 | disposition home or self-care (01) | DRG 917 ==
LOC: ER 08:54 → MEDS 08:55
PROVIDERS: Emergency Medicine; Family Medicine; Physician Assistant; ADMIT Internal Medicine Endocrinology, Diabetes & Metabolism
DX: T42.1X1A Poisoning by iminostilbenes, accidental (unintentional), initial encounter (principal); J69.0 Pneumonitis due to inhalation of food and vomit; J44.1 Chronic obstructive pulmonary disease with (acute) exacerbation; I13.0 Hypertensive heart and chronic kidney disease with heart failure and stage 1 through stage 4 chronic kidney disease, or unspecified chronic kidney disease; I50.32 Chronic diastolic (congestive) heart failure; N39.0 Urinary tract infection, site not specified; E87.1 Hypo-osmolality and hyponatremia; E87.2 Acidosis; G40.209 Localization-related (focal) (partial) symptomatic epilepsy and epileptic syndromes with complex partial seizures, not intractable, without status epilepticus; R55 Syncope and collapse; I95.9 Hypotension, unspecified; N18.3 Chronic kidney disease, stage 3 (moderate); E87.5 Hyperkalemia; Z79.01 Long term (current) use of anticoagulants; Z85.118 Personal history of other malignant neoplasm of bronchus and lung; Z95.810 Presence of automatic (implantable) cardiac defibrillator; I25.2 Old myocardial infarction; I48.0 Paroxysmal atrial fibrillation; Z86.718 Personal history of other venous thrombosis and embolism; Z85.72 Personal history of non-Hodgkin lymphomas; N40.1 Benign prostatic hyperplasia with lower urinary tract symptoms; G47.33 Obstructive sleep apnea (adult) (pediatric); E78.5 Hyperlipidemia, unspecified; F17.210 Nicotine dependence, cigarettes, uncomplicated
CPT/HCPCS: 36415; 71046; 80048; 80053; 81001; 83605; 83735; 83880; 84484; 85025; 85610; 87040; 87077; 87086; 87186; 87804; 93005; 93010; 94640; 94760; 94762; 96361; 96374; 99285-25; A9270; J0456; J0696; J7050; J7120

== ENCOUNTER → 2019-12-31 | Outpatient (CLI) | payer MEDICARE ==
[~2019-12-31] MED LIST changes: +ALLEGRA ALLERG180 MG PO; +Lamictal150 MG PO; +NITR100CA PO; +OMEP20ER PO
== END | disposition home or self-care (01) ==
LOC: LAB SHORT 08:12 → PLD 08:12
DX: L91.8 Other hypertrophic disorders of the skin (principal)
CPT/HCPCS: 88304

== ENCOUNTER 2020-01-19 15:39 | Emergency (ER) | payer OTHER, MEDICARE ==
[~2020-01-19] VITALS: Ht 193 cm; Wt 108.9 kg
[2020-01-19 17:06] LABS: Source, Urine Catheter
[2020-01-19 17:19] LABS: Appearance, Urine Cloudy (Clear); Bilirubin, Urine Neg (Neg); Color, Urine Amber (P-Yellow); Glucose Qualitative, Urine Neg (Neg); Ketones, Urine Neg (Neg); Leukocyte Esterase, Urine 1+ (Neg); Nitrite, Urine Pos (Neg); Protein, Urine 3+ (Neg); Urobilinogen, Urine NORM (Normal)
[2020-01-19 17:20] LABS: Blood, Urine 4+ (Neg)
[2020-01-19 17:29] LABS: Bacteria Many /hpf; Red Blood Cells, Urine TNTC /hpf (0-2); Squamous Epithelial Cells Rare /hpf (Few); Transitional Epithelial Cells Rare /hpf (0-Rare); White Blood Cells, Urine 25-50 /hpf (0-5)
[2020-01-19] MEDS ORDERED: Macrobid 100 M100 MG PO (18:34)
[2020-01-19] MEDS ORDERED: ONDA4ODT SL (18:51)
[2020-01-19] MEDS ORDERED: Norco 5-325 Ta1 EACH PO (19:13)
== END 2020-01-19 19:34 | disposition home or self-care (01) ==
LOC: ER 15:39
PROVIDERS: Physician Assistant
DX: N39.0 Urinary tract infection, site not specified (principal); R33.9 Retention of urine, unspecified; Z88.0 Allergy status to penicillin; Z88.2 Allergy status to sulfonamides; Z79.01 Long term (current) use of anticoagulants; Z79.899 Other long term (current) drug therapy; Z79.2 Long term (current) use of antibiotics; I13.0 Hypertensive heart and chronic kidney disease with heart failure and stage 1 through stage 4 chronic kidney disease, or unspecified chronic kidney disease; N18.3 Chronic kidney disease, stage 3 (moderate); I50.9 Heart failure, unspecified; I48.91 Unspecified atrial fibrillation; E78.5 Hyperlipidemia, unspecified; Z86.718 Personal history of other venous thrombosis and embolism; G40.909 Epilepsy, unspecified, not intractable, without status epilepticus; I25.2 Old myocardial infarction; F41.9 Anxiety disorder, unspecified; F32.9 Major depressive disorder, single episode, unspecified; G47.33 Obstructive sleep apnea (adult) (pediatric)
CPT/HCPCS: 81001; A9270-GY